=== PATIENT | male | born 1970 | race Caucasian/White ===

== ENCOUNTER 2018-01-30 22:55 | Emergency (ER) | payer MEDICAID ==
[2018-01-30 23:47] LABS: ADD MAN DIFF? NO
[2018-01-30 23:49] LABS: WHITE BLOOD COUNT 7.6 10^3/ul (4.8-10.8)
[2018-01-30 23:49] LABS: BASOPHILS % 0.3 % (0.0-2.0); EOSINOPHILS # 0.1 10^3/ul (0.0-0.5); EOSINOPHILS % 1.1 % (0.0-7.0); HEMATOCRIT 37.7 % (42.0-52.0); HEMOGLOBIN 12.8 g/dl (14.0-18.0); LYMPHOCYTES % 13.3 % (15.0-51.0); MEAN CORPUSCULAR HEMOGLOBIN 32.1 pg (29.0-33.0); MEAN CORPUSCULAR VOLUME 94.5 fl (82.0-101.0); MEAN PLATELET VOLUME 10.1 fl (7.4-10.4); MONOCYTE # 0.5 10^3/ul (0.3-0.9); MONOCYTES % 6.6 % (0.0-11.0); NEUTROPHIL # 5.9 10^3/ul (1.6-7.5); PLATELET COUNT 193 10^3/UL (140-415); RED BLOOD COUNT 3.99 10^6/ul (4.70-6.10); RED CELL DISTRIBUTION WIDTH 11.8 % (11.5-14.5)
[2018-01-30] MEDS: KETOROLAC 15 MG INJ IV (23:51)
[2018-01-30] MEDS: ONDANSETRON 4 MG INJ IV (23:51)
[2018-01-30] MEDS: SOD CHLORIDE 0.9% 1,000 ML IV (23:52)
[2018-01-30] MEDS: ASPIRIN 81 MG TAB PO (23:59)
[2018-01-31 00:01] LABS: ALANINE AMINOTRANSFERASE 27 IU/L (13-69); ALBUMIN 3.6 g/dl (3.3-4.9); ALBUMIN/GLOBULIN RATIO 1.44; ALKALINE PHOSPHATASE 52 IU/L (42-121); ANION GAP 10 (5-13); ASPARTATE AMINO TRANSFERASE 21 IU/L (15-46); BILIRUBIN,INDIRECT 0.8 mg/dl (0-1.1); BILIRUBIN,TOTAL 0.8 mg/dl (0.2-1.3); BLOOD UREA NITROGEN 27 mg/dl (7-20); CALCIUM 8.3 mg/dl (8.4-10.2); CARBON DIOXIDE 25 mmol/L (21-31); CHLORIDE 103 mmol/L (97-110); CREATININE 0.87 mg/dl (0.61-1.24); Estimated GFR > 60 mL/min (>60); GLUCOSE 151 mg/dl (70-220); LIPASE 98 U/L (23-300); POTASSIUM 3.7 mmol/L (3.5-5.1); SODIUM 138 mmol/L (135-144); TOTAL PROTEIN 6.1 g/dl (6.1-8.1)
[2018-01-31 00:12] LABS: TROPONIN-I < 0.012 ng/ml (0.000-0.120)
[2018-01-31] MEDS ORDERED: BISACODYL (EC) 5 MG TAB PO (02:30)
[2018-01-31] MEDS ORDERED: ONDANSETRON 4 MG INJ IV (02:30)
[2018-01-31] MEDS ORDERED: NITROGLYCERIN (SL) 0.4 MG TAB SL (02:30)
[2018-01-31] MEDS ORDERED: morphine 2 MG INJ IV (02:30)
[2018-01-31] MEDS ORDERED: NACL 0.9% 3 ML SYG IV (02:30)
[2018-01-31] MEDS ORDERED: DOCUSATE SODIUM 100 MG CAP PO (02:30)
[2018-01-31] MEDS: SOD CHLORIDE 0.9% 1,000 ML IV ×2 (04:33→15:03)
[2018-01-31] MEDS: ACETAMINOPHEN 325 MG TAB PO (05:48)
[2018-01-31 06:37] LABS: CHOL/HDL RATIO 4.8 RATIO; CHOLESTEROL 122 mg/dl (100-200); HDL CHOLESTEROL 25 mg/dl (28-71); LDL CHOLESTEROL,CALCULATED 75 mg/dl; TRIGLYCERIDES 109 mg/dl (0-149)
[2018-01-31 06:37] LABS: MAGNESIUM 1.8 mg/dl (1.7-2.5)
[2018-01-31 06:39] LABS: CREATINE KINASE 122 IU/L (23-200)
[2018-01-31 06:51] LABS: CK INDEX 1.9; CK-MB 2.28 ng/ml (0.0-2.4); TROPONIN-I < 0.012 ng/ml (0.000-0.120)
[2018-01-31 07:08] LABS: THYROID STIMULATING HORMONE 0.398 MIU/L (0.465-4.680)
[2018-01-31 07:28] LABS: HEMOGLOBIN A1C 5.2 % (0-5.9)
[2018-01-31] MEDS: NITROGLYCERIN 0.2 MG/HR PATCH TRANSDERM (08:05)
[2018-01-31] MEDS: ENOXAPARIN 40 MG/0.4 ML SYG SC (10:35)
[2018-01-31] MEDS: ASPIRIN 81 MG TAB PO (10:37)
[2018-01-31 12:26] LABS: CREATINE KINASE 103 IU/L (23-200)
[2018-01-31 12:39] LABS: CK-MB 2.03 ng/ml (0.0-2.4); TROPONIN-I < 0.012 ng/ml (0.000-0.120)
[2018-01-31] MEDS: ATORVASTATIN 10 MG TAB PO (12:44)
== END 2018-01-31 16:34 | disposition home or self-care (01) ==
LOC: E/R 22:55
DX: R07.89 Other chest pain (principal); F17.210 Nicotine dependence, cigarettes, uncomplicated
CPT/HCPCS: 36415; 71045; 80053; 80061; 82550; 82553; 83036; 83690; 83735; 84443; 84484; 85025; 93005; 93306; 96374; 96375; 99284-25